=== PATIENT | female | born 1995 | race Caucasian/White ===

== ENCOUNTER 2016-11-01 09:07 | Emergency (ER) | payer BC, MEDICAID, OTHER ==
[~2016-11-01] VITALS: Ht 154.9 cm; Wt 79.0 kg
[~2016-11-01 09:07] MED LIST: METO10TA96 PO; PNV1TABL43 PO
[2016-11-01 09:18] VITALS: Ht 154.9 cm; Wt 79.0 kg
[2016-11-01 11:40] LABS: ADD SCAN DIFF NO
[2016-11-01 11:58] LABS: ALBUMIN 4.4 g/dl (3.3-4.9)
[2016-11-01 11:59] LABS: POTASSIUM 4.1 mmol/L (3.5-5.1)
[2016-11-01 12:01] LABS: ALBUMIN/GLOBULIN RATIO 1.29; BILIRUBIN,INDIRECT 0.1 mg/dl (0-1.1); BILIRUBIN,TOTAL 0.1 mg/dl (0.2-1.3); CREATININE 0.66 mg/dl (0.44-1.00); TOTAL PROTEIN 7.8 g/dl (6.1-8.1)
[2016-11-01 12:08] LABS: ADD UMIC YES; URINE BILIRUBIN (Dip) NEGATIVE (NEGATIVE); URINE BLOOD (Dip) TRACE (NEGATIVE); URINE COLOR LT. YELLOW (YELLOW); URINE GLUCOSE (Dip) NEGATIVE (NEGATIVE); URINE KETONES (Dip) NEGATIVE (NEGATIVE); URINE LEUKOCYTE ESTERASE (Dip) 2+ (NEGATIVE); URINE NITRITE (Dip) NEGATIVE (NEGATIVE); URINE TOTAL PROTEIN (Dip) NEGATIVE (NEGATIVE); URINE UROBILINOGEN (Dip) 0.2 E.U./dL (0.1-1.0)
--- NOTE | 2016-11-01 12:19 | RADRPT ---
PROCEDURE: US Abdomen. CLINICAL INDICATION: abdominal pain TECHNIQUE: Multiple real-time images were acquired of the patient's right upper quadrant abdomen a nd retroperitoneum utilizing a high resolution transducer. COMPARISON: 02/04/2014 FINDINGS: The liver demonstrates normal echogenicity. The liver is normal in size and no focal solid lesions are seen. The liver measures 16.7 cm in length. The portal vein is patent with normal direction of f low. No intrahepatic biliary dilatation is seen. Multiple mobile calcified gallstones are identified within the gallbladder. There is no pericholecy stic fluid or gallbladder wall thickening. The common bile duct measures 4 mm in maximal dimension. The visualized portions of the pancreas are unremarkable. The tail of the pancreas is not seen. No free fluid is identified. The right kidney is normal in size, and demonstrate normal echogenicity and cortical thickness. The right kidney measures 12.1 cm in long dimension. There is no evidence of hydronephrosis. There are no kidney stones. RPTAT: AA IMPRESSION: Cholelithiasis. .Germain Cordero MD, Date Time Electronically viewed and signed by .Germain Cordero MD, on 11/01/2016 12:19 .S/
[2016-11-01 12:22] LABS: BASOPHIL # 0.1 10^3/ul (0.0-0.1); BASOPHILS % 0.4 % (0.0-2.0); EOSINOPHILS # 0.7 10^3/ul (0.0-0.5); EOSINOPHILS % 5.7 % (0.0-7.0); HEMATOCRIT 38.3 % (37.0-47.0); HEMOGLOBIN 12.8 g/dl (12.0-16.0); LYMPHOCYTES # 4.1 10^3/ul (0.8-2.9); MEAN CORPUSCULAR HEMOGLOBIN 28.1 pg (29.0-33.0); MEAN CORPUSCULAR HGB CONC 33.4 g/dl (32.0-37.0); MEAN CORPUSCULAR VOLUME 84.2 fl (82.0-101.0); MEAN PLATELET VOLUME 9.8 fl (7.4-10.4); MONOCYTE # 0.7 10^3/ul (0.3-0.9); MONOCYTES % 5.6 % (0.0-11.0); NEUTROPHIL # 6.9 10^3/ul (1.6-7.5); NEUTROPHILS % 54.8 % (39.0-77.0); PLATELET COUNT 307 10^3/UL (140-415); RED BLOOD COUNT 4.55 10^6/ul (4.20-5.40); RED CELL DISTRIBUTION WIDTH 14.6 % (11.5-14.5); WHITE BLOOD COUNT 12.5 10^3/ul (4.8-10.8)
[2016-11-01 13:18] LABS: BACTERIA,URINE FEW
[2016-11-01] MEDS ORDERED: IBUP-1542 PO (13:24)
[2016-11-01] MEDS ORDERED: NITR-58 PO (13:24)
--- NOTE | 2016-11-01 13:57 | ERD ---
ER Documentation Chief Complaint Date/Time DATE: 11/01/16 TIME: 13:51 Chief Complaint ap since last night HPI This is a 21-year-old female that presents to the ER for RUQ pain the radiates to the LUQ since this morning. Patient states she has a hx of gallstones, however has not followed up with her PCP . Patient took ibuprofen and her pain resolved. She denies any n/v/d. She denies any fever or chills. She denies any urinary frequency or dysuria. ROS 12 point review of systems was done, all negative except per HPI. Medications Home Meds Active Scripts Ibuprofen* (Motrin*) 600 Mg Tab, 600 MG PO Q6, #30 TAB Prov:DELLA MELENDEZ 11/01/16 Nitrofurantoin Monohyd Macrocr* (Macrobid*) 100 Mg Capsr, 100 MG PO BID for 7 Days, CAP Prov:DELLA MELENDEZ 11/01/16 Reported Medications Metoclopramide Hcl* (Metoclopramide Hcl*) 10 Mg Tablet, 10 MG PO BID Y for NAUSEA AND OR VOMITING, TAB 02/04/14 Vit/Fe Fumarate/Fa* ( Vitamin Tablet*) 1 Tab Tablet, 1 TAB PO DAILY 12/27/13 Allergies Allergies: Coded Allergies: No Known Allergy (Unverified , 02/04/14) PMhx/Soc History of Surgery: No Anesthesia Reaction: No Hx Neurological Disorder: No Hx Respiratory Disorders: No Hx Cardiac Disorders: No Hx Psychiatric Problems: No Hx Miscellaneous Medical Probl: Yes (GALLSTONES) Hx Alcohol Use: No Hx Substance Use: No Hx Tobacco Use: No Physical Exam Vitals Vital Signs Date Time Temp Pulse Resp B/P Pulse Ox O2 Delivery O2 Flow Rate FiO2 11/01/16 09:18 98.1 71 20 116/71 99 Physical Exam GENERAL: The patient is well developed and appropriate for usual state of health , in no apparent distress. HEENT: Atraumatic. CHEST: Clear to auscultation bilaterally. There are no rales, wheezes or rhonchi. HEART: Regular rate and rhythm. No murmurs, clicks, rubs or gallops. ABDOMEN: Soft, nontender and nondistended. Good bowel sounds. No rebound or guarding. No gross peritonitis. No gross organomegaly or masses. No Han sign or McBurney point tenderness. BACK: No midline or flank tenderness. NEURO: Alert and oriented. Result Diagram: 11/01/16 1125 11/01/16 1125 Results 24 hrs Laboratory Tests Test 11/01/16 11:25 Alanine Aminotransferase (ALT/SGPT) 25IU/L Albumin 4.4g/dl Albumin/Globulin Ratio 1.29 Alkaline Phosphatase 137IU/L Anion Gap 17 Aspartate Amino Transf (AST/SGOT) 23IU/L Basophils # 0.110^3/ul Basophils % 0.4% Blood Urea Nitrogen 13mg/dl Calcium Level 10.0mg/dl Carbon Dioxide Level 26mmol/L Chloride Level 103mmol/L Creatinine 0.66mg/dl Direct Bilirubin 0.00mg/dl Eosinophils # 0.710^3/ul Eosinophils % 5.7% Globulin 3.40g/dl Glucose Level 75mg/dl Hematocrit 38.3% Hemoglobin 12.8g/dl Indirect Bilirubin 0.1mg/dl Lipase 163U/L Lymphocytes # 4.110^3/ul Lymphocytes % 33.0% Mean Corpuscular Hemoglobin 28.1pg Mean Corpuscular Hemoglobin Concent 33.4g/dl Mean Corpuscular Volume 84.2fl Mean Platelet Volume 9.8fl Monocytes # 0.710^3/ul Monocytes % 5.6% Neutrophils # 6.910^3/ul Neutrophils % 54.8% Nucleated Red Blood Cells # 0.010^3/ul Nucleated Red Blood Cells % 0.0/100WBC Platelet Count 32044^3/UL Potassium Level 4.1mmol/L Red Blood Count 4.5510^6/ul Red Cell Distribution Width 14.6% Sodium Level 142mmol/L Total Bilirubin 0.1mg/dl Total Protein 7.8g/dl Urine Bacteria FEW Urine Bilirubin NEGATIVE Urine Clarity CLEAR Urine Color LT. YELLOW Urine Epithelial Cells MODERATE Urine Glucose NEGATIVE% Urine Hemoglobin TRACE Urine Ketones NEGATIVE Urine Leukocyte Esterase 2+ Urine Microscopic RBC 5-10/HPF Urine Microscopic WBC 5-10/HPF Urine Nitrite NEGATIVE Urine Specific [place] 1.015 Urine Total Protein NEGATIVE Urine Urobilinogen 0.2 E.U./dL Urine Yeast FEW Urine pH 6.0 White Blood Count 12.510^3/ul Procedures/MDM Differential Diagnosis: GERD, gastritis, peptic ulcer disease, pancreatitis, cholecystitis, choledocholithiasis, biliary colic, cholangitis, [id number] , ACS/ME, Pnuemonia. Patient does have gallstones, which she has had for a while now. No evidence of acute abdomen patient's lab work is normal. Suspicion for cholecystitis choledocholithiasis is low. She was found to have a urinary tract infection here in the ER to be treated with Macrobid. She is to follow-up with her primary care doctor and schedule an appointment with the surgeon to have gallbladder removed. I explained to the patient. Patient is return to ER sooner if symptoms worsen. I shared my medical decision making with her she understands and agrees with plan. Departure Diagnosis: Primary Impression: UTI (urinary tract infection) Additional Impression: Cholelithiasis Condition: Stable Patient Instructions: Understanding Urinary Tract Infections (UTIs), Gallstones Additional Instructions: Call your primary care doctor TOMORROW for an appointment during the next 1-2 days.See the doctor sooner or return here if your condition worsens before your appointment time. DELLA MELENDEZ Nov 01, 2016 13:57
== END 2016-11-01 14:00 | disposition home or self-care (01) ==
LOC: FTE 09:07
DX: N39.0 Urinary tract infection, site not specified (principal); K80.20 Calculus of gallbladder without cholecystitis without obstruction
CPT/HCPCS: 36415; 76705; 80053; 81001; 81003; 83690; 85025